=== PATIENT | female | born 1960 | race Caucasian/White ===

== ENCOUNTER 2022-10-30 15:19 | Emergency (ER) | payer MEDICAID ==
[2022-10-30] MEDS ORDERED: LORazepam 0.5 MG Tab PO ONE (17:53)
[2022-10-30] MEDS ORDERED: Lisinopril 10 MG Tab PO ONE (18:55)
[2022-10-30] MEDS ORDERED: cloNIDine 0.1 MG Tab PO ONE (18:55)
== END 2022-10-30 20:11 | disposition home or self-care (01) ==
LOC: JP.ED 15:19
DX: I10 Essential (primary) hypertension (principal); Z79.899 Other long term (current) drug therapy
CPT/HCPCS: 99283; A9270

== ENCOUNTER → 2022-11-05 | Day surgery (SDC) | payer MEDICAID, OTHER ==
[~2022-11-05] MED LIST: Lactated Ringers 1,000 ML IV SCH; Midazolam 1 MG/ML 2 ML SDV ONE; Propofol 200 MG/20 ML SDV ONE; fentaNYL 50 MCG/ML SDV ONE
== END ==
LOC: JP.SDS 07:28
PROVIDERS: ATTEND Student in an Organized Health Care Education/Training Program
DX: Z12.11 Encounter for screening for malignant neoplasm of colon (principal); K57.30 Diverticulosis of large intestine without perforation or abscess without bleeding; I10 Essential (primary) hypertension
CPT/HCPCS: 45378; J2250; J2704; J3010; J7120